=== PATIENT | female | born 1995 | race American Indian/Alaskan Native ===

== ENCOUNTER 2016-07-14 16:52 | Emergency (ER) | payer SELFPAY ==
[2016-07-14 16:52] VITALS: BMI 29.2
[2016-07-14 17:13] VITALS: TEMP 98.6; O2SAT 100
[2016-07-14] MEDS ORDERED: Sodium Chloride 0.9% 1,000 ML IV STA (17:44)
--- NOTE | 2016-07-14 17:47 | ED PDOC ---
Arrival/HPI - General Chief Complaint: Abdominal Pain Time Seen by Provider: 07/14/16 17:28 - History of Present Illness Narrative History of Present Illness (Text): 07/14/16 17:44 21 yo female, ,no prior hx, presents with lower abdominal cramping. pt states she had mild lower abdominal cramping for last 1-2 weeks. pt states she took home test, and was positive. 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 pt reports mild spotting. no fevers, n/v/d, urinary changes, hematuria. lmp " of october" 07/14/16 17:51 Past Medical History - Provider Review Nursing Documentation Reviewed: Yes - Infectious Disease Hx of Infectious Diseases: None - Psychiatric Hx Substance Use: No - Surgical History Hx Orthopedic Surgery: Yes (right knee surgery) - Anesthesia Hx Anesthesia: No Hx Anesthesia Reactions: No Hx Malignant Hyperthermia: No Family/Social History - Physician Review Nursing Documentation Reviewed: Yes Family/Social History: Unknown Family HX Smoking Status: Never Smoked Hx Alcohol Use: No Hx Substance Use: No Allergies/Home Meds Allergies/Adverse Reactions: Allergies No Known Allergies Allergy (Verified 06/04/16 11:23) Review of Systems - Review of Systems Constitutional: Normal Eyes: Normal ENT: Normal Respiratory: Normal Cardiovascular: Normal Gastrointestinal: Abdominal Pain Genitourinary Female: Vaginal Bleeding (spotting) Musculoskeletal: Normal Skin: Normal Neurological: Normal Endocrine: Normal Hemo/Lymphatic: Normal Psychiatric: Normal Physical Exam Vital Signs Temp Pulse Resp BP Pulse Ox 07/14/16 16:52 98.6 F 73 16 106/64 100 Temperature: Afebrile Blood Pressure: Normal Pulse: Regular Respiratory Rate: Normal Appearance: Positive for: Well-Appearing, Non-Toxic, Comfortable Pain Distress: None Mental Status: Positive for: Alert and Oriented X 3 - Systems Exam Head: Present: Atraumatic, Normocephalic Pupils: Present: PERRL Extroacular Muscles: Present: EOMI Conjunctiva: Present: Normal Mouth: Present: Moist Mucous Membranes Neck: Present: Normal Range of Motion Respiratory/Chest: Present: Clear to Auscultation, Good Air Exchange. No: Respiratory Distress, Accessory Muscle Use Cardiovascular: Present: Regular Rate and Rhythm, Normal S1, S2. No: Murmurs Abdomen: Present: Tenderness (minimal ttp, lower abd, no rlq focal ttp), Normal Bowel Sounds. No: Distention, Peritoneal Signs, Rebound, Guarding Back: Present: Normal Inspection Upper Extremity: Present: Normal Inspection. No: Cyanosis, Edema Lower Extremity: Present: Normal Inspection. No: Edema Neurological: Present: GCS=15, CN II-XII Intact, Speech Normal Skin: Present: Warm, Dry, Normal Color. 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 pending US and final disposition. - RAD Interpretation Radiology Orders: 07/14/16 17:43 TRANSVAGINAL [US] Stat - Medication Orders Current Medication Orders: Sodium Chloride (Sodium Chloride 0.9%) 1,000 mls @ 999 mls/hr IV .Q1H1M STA Stop: 07/14/16 18:44 Last Admin: 07/14/16 18:00 Dose: 999 MLS/HR eMAR Start Stop Document 07/14/16 18:00 ARNULFO (Rec: 07/14/16 18:08 [email or web address] [id number]) Intravenous Solution Start Date 07/14/16 Start Time 18:00 End Date 07/14/16 End time 19:00 Total Infusion Time 60 Discontinued Medications Acetaminophen (Tylenol 325mg Tab) 975 mg PO STAT STA Stop: 07/14/16 17:45 Last Admin: 07/14/16 18:14 Dose: 975 MG Disposition/Present on Arrival - Present on Arrival History of DVT/PE: No History of Uncontrolled Diabetes: No Urinary Catheter: No History of Decub. Ulcer: No History Surgical Site Infection Following: None
[2016-07-14 18:18] LABS: ADD MANUAL DIFF? NO
[2016-07-14 18:30] LABS: ALB/GLOB RATIO 1.2 (1.1-1.8); ALKALINE PHOSPHATASE 60 U/L (38-133); ALT/SGPT 16 U/L (7-56); AST/SGOT 18 U/L (15-39); BILIRUBIN,TOTAL 0.5 mg/dL (0.2-1.3); BLOOD UREA NITROGEN 9 mg/dL (7-21); CALCIUM 9.1 mg/dL (8.4-10.5); CARBON DIOXIDE 24 mmol/L (21-33); CHLORIDE 102 mmol/L (98-107); GFR AFRICAN-AMERICAN > 60; GLUCOSE,RANDOM 95 mg/dL (70-110); POTASSIUM 3.7 mmol/L (3.6-5.0); SODIUM 137 mmol/L (132-148); TOTAL PROTEIN 7.5 g/dL (5.8-8.3)
[2016-07-14 18:33] LABS: PARTIAL THROMBOPLASTIN TIME 29.5 Seconds (23.7-30.8)
[2016-07-14 18:39] LABS: BASO # 0.02 K/mm3 (0.0-2.0); BASO % 0.3 % (0.0-3.0); EOS # 0.1 (0.0-0.7); EOS % 1.6 % (1.5-5.0); GRAN # 4.85 (1.4-6.5); GRAN % 64.4 % (50.0-68.0); HEMATOCRIT 37.5 % (36.0-48.0); LYMPH # 2.1 (1.2-3.4); MEAN CELL VOLUME 94.5 fL (80.0-105.0); MEAN CORPUSCULAR HEMOGLOBIN 32.5 pg (25.0-35.0); MEAN CORPUSCULAR HGB CONC 34.4 g/dl (31.0-37.0); MEAN PLATELET VOLUME 9.5 fl (7.0-11.0); MONO # 0.4 (0.1-0.6); MONO % 5.7 % (1.0-6.0); PLATELET COUNT 260 10^3/uL (120.0-450.0); RED CELL DISTRIBUTION WIDTH 13.1 % (11.5-14.5); WHITE BLOOD COUNT 7.5 10^3/ul (4.5-11.0)
--- NOTE | 2016-07-14 19:12 | ED PDOC ---
Physical Exam Vital Signs Reviewed: Yes Vital Signs Temp Pulse Resp BP Pulse Ox 07/14/16 18:46 69 18 108/65 100 07/14/16 16:52 98.6 F 73 16 106/64 100 Temperature: Afebrile Blood Pressure: Normal Pulse: Regular Respiratory Rate: Normal Appearance: Positive for: Well-Appearing, Non-Toxic, Comfortable Pain Distress: None Mental Status: Positive for: Alert and Oriented X 3 Medical Decision Making ED Course and Treatment: 07/14/16 19:00 Case endorsed to me by Dr. Fonseca, pending US, re-evaluation, and final disposition. 07/14/16 20:57 Reviewed sono, Transvaginal US shows: Suspect an early (approximately 5 week) intrauterine gestational sac. A probable yolk sac is seen, but there is no pole identified. Recommend correlation with quantitative beta HCG levels and close clinical followup, including a follow up ultrasound to confirm an intrauterine . See above for remaining findings. 07/14/16 21:20 On re-evaluation, the patient feels better and is in no acute distress. I have discussed the results and plan with the patient, who expresses understanding. Patient in agreement with plan to discharged home. Patient is stable for discharge. Patient was instructed to follow up with physician/OBGYN/clinic in 1- 2 days or return if symptoms worsen or new concerning symptoms arise. - Lab Interpretations Lab Results: 07/14/16 17:49 07/14/16 17:49 Lab Results 07/14/16 21:00: Urine Color Yellow, Urine Appearance Cloudy, Urine pH 7.0, Ur Specific [place] 1.025, Urine Protein Negative, Urine Glucose (UA) Negative, Urine Ketones Negative, Urine Blood Small H, Urine Nitrate Positive H, Urine Bilirubin Negative, Urine Urobilinogen 0.2, Ur Leukocyte Esterase Negative, Urine RBC Pending, Urine WBC Pending, Urine HCG, Qual Positive 07/14/16 17:49: WBC 7.5 D, RBC 3.97, Hgb 12.9, Hct 37.5, MCV 94.5, MCH 32.5, MCHC 34.4, RDW 13.1, Plt Count 260, MPV 9.5, Gran % 64.4, Lymph % (Auto) 28.0, [place] % (Auto) 5.7, Eos % (Auto) 1.6, Baso % (Auto) 0.3, Gran # 4.85, Lymph # 2.1 , [place] # 0.4, Eos # 0.1, Baso # 0.02, PT 10.8, INR 1.00, APTT 29.5, Sodium 137, Potassium 3.7, Chloride 102, Carbon Dioxide 24, Anion Gap 15, BUN 9, Creatinine 0.6, Est GFR ( Amer) > 60, Est GFR (Non-Af Amer) > 60, Random Glucose 95 , Calcium 9.1, Total Bilirubin 0.5, AST 18, ALT 16, Alkaline Phosphatase 60, Total Protein 7.5, Albumin 4.1, Globulin 3.5, Albumin/Globulin Ratio 1.2, Beta HCG, Quant 3012.20 H - RAD Interpretation Narrative RAD Interpretations (Text): Transvaginal US shows: Uterus: Measures 7.7 x 4.3 x 4.7 cm. Small, round cystic area is seen within the endometrium, measuring 8 x 5.9 x 7 mm. This is most likely an early intrauterine gestational sac. It contains a probable yolk sac. However, there is no pole identified. If this is a gestational sac, it would correspond to an estimated gestational age of approximately 5 weeks, based on a mean gestational sac diameter of 6.9 mm. Cervix appears closed. Right ovary: Within normal limits in appearance. Measures 3.5 x 1.6 x 2.8 cm. Flow seen in the right ovary on color and Doppler imaging, with no evidence of torsion. Left ovary: Within normal limits in appearance. Measures 2.9 x 1.9 x 2.7 cm. Flow seen in the left ovary on color and Doppler imaging, with no evidence of torsion. Free fluid in the cul-de-sac: None seen. IMPRESSION: Suspect an early (approximately 5 week) intrauterine gestational sac. A probable yolk sac is seen, but there is no pole identified. Recommend correlation with quantitative beta HCG levels and close clinical followup, including a follow up ultrasound to confirm an intrauterine . See above for remaining findings. Radiology Orders: 07/14/16 17:43 OB TRANSVAGINAL [US] Stat Water Control Supervisor: Radiologist - Medication Orders Current Medication Orders: Discontinued Medications Acetaminophen (Tylenol 325mg Tab) 975 mg PO STAT STA Stop: 07/14/16 17:45 Last Admin: 07/14/16 18:14 Dose: 975 MG Sodium Chloride (Sodium Chloride 0.9%) 1,000 mls @ 999 mls/hr IV .Q1H1M STA Stop: 07/14/16 18:44 Last Admin: 07/14/16 18:00 Dose: 999 MLS/HR eMAR Start Stop Document 07/14/16 18:00 ARNULFO (Rec: 07/14/16 18:08 [email or web address] [id number]) Intravenous Solution Start Date 07/14/16 Start Time 18:00 End Date 07/14/16 End time 19:00 Total Infusion Time 60 Disposition/Present on Arrival - Present on Arrival Any Indicators Present on Arrival: No History of DVT/PE: No History of Uncontrolled Diabetes: No Urinary Catheter: No History of Decub. Ulcer: No History Surgical Site Infection Following: None - Disposition Have Diagnosis and Disposition been Completed?: Yes Diagnosis: Urinary tract infection, Disposition: HOME/ ROUTINE Disposition Time: 21:21 Condition: GOOD Discharge Instructions (ExitCare): (ED), Urinary Tract Infection in Women (ED) Prescriptions: Cephalexin [Keflex] 500 mg PO BID #14 capsule Referrals: PCP,NO [Primary Care Provider] - Follow up with primary
--- NOTE | 2016-07-14 20:50 | US ---
EXAM: US First Trimester, Transabdominal US , Transvaginal CLINICAL HISTORY: 21 years old, female; Pain; Other: Preg/pelvic pain /spotting; Gestational age or lmp: 05/04/2016; ; Additional info: Abd pain and TECHNIQUE: Real-time transabdominal and transvaginal obstetrical ultrasound of the maternal pelvis and a first trimester with image documentation. Transvaginal imaging was used for better evaluation of the fetus and adnexa. EXAM DATE/TIME: 07/14/2016 5:43 PM COMPARISON: No relevant prior studies available. FINDINGS: Uterus: Measures 7.7 x 4.3 x 4.7 cm. Small, round cystic area is seen within the endometrium, measuring 8 x 5.9 x 7 mm. This is most likely an early intrauterine gestational sac. It contains a probable yolk sac. However, there is no pole identified. If this is a gestational sac, it would correspond to an estimated gestational age of approximately 5 weeks, based on a mean gestational sac diameter of 6.9 mm. Cervix appears closed. Right ovary: Within normal limits in appearance. Measures 3.5 x 1.6 x 2.8 cm. Flow seen in the right ovary on color and Doppler imaging, with no evidence of torsion. Left ovary: Within normal limits in appearance. Measures 2.9 x 1.9 x 2.7 cm. Flow seen in the left ovary on color and Doppler imaging, with no evidence of torsion. Free fluid in the cul-de-sac: None seen. IMPRESSION: Suspect an early (approximately 5 week) intrauterine gestational sac. A probable yolk sac is seen, but there is no pole identified. Recommend correlation with quantitative beta HCG levels and close clinical followup, including a follow up ultrasound to confirm an intrauterine . See above for remaining findings.
[2016-07-14 21:13] LABS: URINE BILIRUBIN NEGATIVE (NEGATIVE); URINE BLOOD SMALL (NEGATIVE); URINE GLUCOSE (UA) NEGATIVE (NEGATIVE); URINE KETONE NEGATIVE (NEGATIVE); URINE LEUKOCYTE ESTERASE NEGATIVE Leu/uL (NEGATIVE); URINE PROTEIN NEGATIVE mg/dL (<30 mg/dL); URINE UROBILINOGEN 0.2 E.U./dL (<1 E.U./dL)
[2016-07-14 21:16] LABS: URINE APPEARANCE CLOUDY (CLEAR); URINE COLOR YELLOW (YELLOW)
[2016-07-14 21:42] VITALS: BP 101/67; PULSE 57; RESP 16
[2016-07-14 22:07] LABS: URINE BACTERIA MANY (NEG)
[2016-07-14 22:08] LABS: URINE RBC 0 - 2 /hpf (0-2)
== END 2016-07-14 21:43 | disposition home or self-care (01) ==
LOC: ED 16:52
DX: O23.40 Unspecified infection of urinary tract in pregnancy, unspecified trimester (principal)
CPT/HCPCS: 76817; 80053; 81001; 84702; 84703; 85025; 85610; 85730; 87086; 96360; 99283; J7040